=== PATIENT | male | born 1995 | race Caucasian/White ===

== ENCOUNTER 2017-08-30 19:12 | Emergency (ER) | payer OTHER, SELFPAY ==
[2017-08-30 19:13] VITALS: BP 108/68; PULSE 76; RESP 16; TEMP 36.7; O2SAT 97; BMI 22.9
--- NOTE | 2017-08-30 19:26 | ED.DCSUM_ITS ---
- ER Visit Summary Date of Service: 08/30/17 Chief Complaint: [Dental pain] History of Present Illness: The patient is a 22 M [presents the emergency department complaint of dental pain that he has had for several days. Patient states that he was eating popcorn before all this started. Patient denies any fevers. He does not currently have a dentist.] Physical Examination: [HEENT-PERRLA, EOMI. Cranial nerves II through XII grossly intact. TMs clear. Mucous membranes moist. No adenopathy. Dentition- patient has broken and carried left upper molars that are tender to palpation. No discrete abscess noted. Minimal gingival erythema noted. There is no facial cellulitis. No trismus on exam. No facial swelling noted. Cardiovascular-regular rate and rhythm without murmur or ectopy Lungs-clear to auscultation, chest wall stable without crepitus or subcu emphysema Abdomen-normoactive bowel sounds, soft, nontender, no rebound or rigidity, no peritoneal signs. Extremities-intact ?4, normal range of motion, normal pulses, atraumatic] Test Results: [None indicated] Emergency Department Course and Treatment: [Patient was given a dose of clindamycin in the emergency department 300 mg.] Treatment Plan: [Patient will be started on clindamycin. Patient to continue with naproxen as that does seem to control his pain. Patient will be given a list of dentists in the area to follow-up with] Disposition: [Discharged home in stable condition] Impression: [Dental pain] This note was generated with [employer] dictation software. It may contain incorrect words, spelling, and punctuation that were not noted in review of the chart prior to signing ED Disposition - Plan for ED Patient: Chief Complaint: Dental Referrals: Keyshawn Son MD [Primary Care Provider] -
--- NOTE | 2017-08-30 19:26 | ED.DEP ---
ED Disposition - Plan for ED Patient: Chief Complaint: Dental Instructions: ED Tooth Pain Prescriptions: Clindamycin HCl [Cleocin] 300 mg PO Q6H #40 cap Referrals: Keyshawn Son MD [Primary Care Provider] - Additional Instructions: see a dentist
[2017-08-30] MEDS: Clindamycin HCl 150 MG Capsule 300 MG PO (19:29)
== END 2017-08-30 19:33 | disposition home or self-care (01) ==
LOC: ED 19:31
PROVIDERS: Emergency Provider Emergency Medicine; Family Provider Family Medicine; PCP Family Medicine
DX: K08.89 Other specified disorders of teeth and supporting structures (principal); K02.9 Dental caries, unspecified; Z72.0 Tobacco use
CPT/HCPCS: 99283

== ENCOUNTER 2018-09-02 23:51 | Emergency (ER) | payer OTHER, SELFPAY ==
[2018-09-02 23:52] VITALS: BP 141/75; PULSE 73; RESP 15; TEMP 36.6; BMI 21.5
--- NOTE | 2018-09-03 | ED.VIS.GEN ---
History of Present Illness Chief Complaint: Dental Informant: Patient Narrative: Patient stated that he has dental pain that started tonight in his right frontal canine as well as his right posterior lower molar. There are decayed per patient. He does not see a dentist. No swelling to his face. Hurts to chew. No home treatment. Current severity is mild to moderate. Past Medical History - Allergies and Home Meds Allergies/Adverse Reactions: Allergies No Known Allergies Allergy (Verified 09/02/18 23:54) Prior records reviewed: Yes Past Medical History: None Surgical History: noncontributory Smoking Status: Current every day smoker Alcohol: None Drugs: None Review of Systems General: Denies: Chills, Fever, Sweats Eyes: Denies: Visual changes - bilaterally, Diplopia ENT: Reports: - - See HPI. Denies: Rhinorrhea, Sore throat Cardiovascular: Denies: Chest pain, Palpitations Respiratory: Denies: Dyspnea, Cough, Dyspnea on exertion Gastrointestinal: Denies: Abdominal pain, Nausea, Vomiting, Diarrhea, Melena, Hematochezia Genitourinary: Denies: Dysuria, Hematuria, Frequency Musculoskeletal: Denies: Back pain, Extremity Pain Skin: Denies: Rash, Wounds Neurological: Denies: Headache, Weakness, Numbness Physical Exam Vital Signs/Narrative: Vital Signs Temp Pulse Resp BP 09/02/18 23:52 97.8 F 73 15 141/75 H ENT: - - Has widespread decay. Decayed to the right canine to the gum. Decayed to the gumline of his right posterior molar as well. No abscess seen in the gumline. No ANUG or Rosas's angina Diagnostic/Tx/Re-eval - Medical Decision Making Patient given ibuprofen amoxicillin will continue these at home. Given dental referrals. We will follow-up as an outpatient for his dental infection ED Disposition - Plan for ED Patient: Diagnosis: Pulpitis Instructions: Dental Abscess Prescriptions: Amoxicillin 500 mg PO TID #30 tab Prescription Printed Meloxicam 15 mg PO DAILY #14 tab Prescription Printed Referrals: Dentist,Your [STAFF PHYSICIAN] -
[2018-09-03] MEDS: AMOXICILLIN 500 MG CAPSULE PO (00:09)
[2018-09-03] MEDS: Ibuprofen 400 MG Tablet 800 MG PO (00:09)
[2018-09-03 00:11] VITALS: BP 129/78; PULSE 92; RESP 18; O2SAT 100
--- NOTE | 2018-09-03 00:11 | ED.RN ---
THIS NURSE REVIEWED D/C INSTRUCTIONS WITH PT. PT VERBALIZED UNDERSTANDING OF INSTRUCTIONS. PT DENIES FURTHER NEEDS OR QUESTIONS AT THIS TIME. PT AMBULATES FROM ROOM ON OWN WITHOUT ASSISTANCE FROM STAFF
== END 2018-09-03 00:12 | disposition home or self-care (01) ==
LOC: ED 09-03 00:06
PROVIDERS: Emergency Provider Emergency Medicine; Family Provider Family Medicine; PCP Family Medicine
DX: K04.01 Reversible pulpitis (principal); F17.200 Nicotine dependence, unspecified, uncomplicated
CPT/HCPCS: 99283

== ENCOUNTER 2019-04-11 01:16 | Emergency (ER) | payer OTHER, SELFPAY ==
[2019-04-11 01:17] VITALS: BP 143/101; PULSE 74; RESP 16; TEMP 36.3; O2SAT 99; BMI 26.2
--- NOTE | 2019-04-11 01:30 | DCINST.ED_ITS ---
ED Disposition - Plan for ED Patient: Instructions: Dental Pain Prescriptions: Naproxen [Naprosyn] 500 mg PO BID PRN #20 tablet Hydrocodone Bitart/Apap 5-325 [[place] 5MG-325MG] 1 tablet PO Q6H PRN PRN 2 Days #6 tablet PRN Reason: Pain Penicillin V Potassium 500 mg PO 4X/DAY #40 tablet Referrals: Keyshawn Son MD [Primary Care Provider] -
[2019-04-11] MEDS: Penicillin Vk 250 MG Tablet 500 MG PO (01:38)
[2019-04-11 01:41] VITALS: RESP 16
--- NOTE | 2019-04-11 02:27 | ED.DCSUM_ITS ---
- ER Visit Summary Date of Service: 04/11/19 Chief Complaint: Toothache History of Present Illness: The patient is a 24 M presenting with toothache x3 days. Patient has pain to the right upper teeth with swelling. He tried Aleve at home. He denies fever. He does not currently have a dentist. He has seen a dentist in [place] in the past. Denies other complaints. Physical Examination: Vitals are stable. Patient is afebrile. Alert no acute distress. HEENT exam widespread dental decay. Tenderness right upper molar. No area of fluctuance. No sublingual edema. Neck is supple. Lungs are clear and equal bilaterally. Heart is regular rate and rhythm. Skin is warm and dry. No focal neurologic deficit. Remainder of exam is unremarkable. Emergency Department Course and Treatment: Patient was given penicillin, Naprosyn, short course of [place]. Advised to follow-up with dentist. He was given a dental referral list. Advised return to ED for worsening complaints. Disposition: Discharge home Impression: Odontalgia This note was generated with [employer] dictation software. It may contain incorrect words, spelling, and punctuation that were not noted in review of the chart prior to signing ED Disposition - Plan for ED Patient: Disposition: Home or Assisted Living Instructions: Dental Pain Prescriptions: Naproxen [Naprosyn] 500 mg PO BID PRN #20 tab Prescription Printed Hydrocodone Bitart/Apap 5-325 [[place] 5MG-325MG] 1 tab PO Q6H PRN PRN 2 Days #6 tab PRN Reason: Pain Prescription Printed Penicillin V Potassium 500 mg PO 4X/DAY #40 tab Prescription Printed Referrals: Keyshawn Son MD [Primary Care Provider] -
== END 2019-04-11 01:42 | disposition home or self-care (01) ==
LOC: ED 01:38
PROVIDERS: Emergency Provider Emergency Medicine; PCP Family Medicine
DX: K08.89 Other specified disorders of teeth and supporting structures (principal); K02.9 Dental caries, unspecified
CPT/HCPCS: 99283

== ENCOUNTER 2022-08-13 23:07 | Emergency (ER) | payer OTHER, SELFPAY ==
[2022-08-13 23:08] VITALS: BP 147/91; PULSE 97; RESP 22; TEMP 37.1; O2SAT 100; BMI 25.2
[2022-08-13] MEDS: Naproxen 250 MG Tablet 500 MG PO (23:45)
[2022-08-13] MEDS: Lidocaine 4% 50 ML Bottle TOPICAL (23:46)
[2022-08-13] MEDS: Diphth,Pertuss(Acell),Tet Vac 0.5 ML Vial IM (23:46)
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
[2022-08-14 00:30] VITALS: PULSE 67; RESP 15; O2SAT 99
== END 2022-08-14 00:55 | disposition home or self-care (01) ==
PROVIDERS: Emergency Provider Emergency Medicine; Visit Provider Emergency Medicine
DX: T23.161A Burn of first degree of back of right hand, initial encounter (principal); Z87.891 Personal history of nicotine dependence; Z23 Encounter for immunization; T23.162A Burn of first degree of back of left hand, initial encounter; X19.XXXA Contact with other heat and hot substances, initial encounter; Y99.0 Civilian activity done for income or pay
CPT/HCPCS: 90471; 90715; 99283